=== PATIENT | female | born 1940 | race Caucasian/White ===

== ENCOUNTER 2016-06-05 09:08 | Inpatient (IN) | payer OTHER ==
[2016-06-01 14:37] LABS: HEMATOCRIT 40.3 % (36.0-48.0)
[2016-06-01 14:43] LABS: CALCIUM, SERUM 8.3 MG/DL (8.5-10.4); CHLORIDE, SERUM 100 MMOL/L (96-112); CREATININE 0.93 MG/DL (0.55-1.02); GFR AFRICAN AMERICAN 69 ML/MIN (>=60); GFR NON AFRICAN AMERICAN 59 ML/MIN (>=60); POTASSIUM, SERUM 3.8 MMOL/L (3.5-5.3); SODIUM, SERUM 139 MMOL/L (135-148)
[2016-06-01 14:45] LABS: BUN (BLOOD UREA NITROGEN) 19 MG/DL (6-23); CO2 (CARBON DIOXIDE) 29 MMOL/L (24-34); GLUCOSE, SERUM 65 MG/DL (60-99)
--- NOTE | ~2016-06-05 | OP ---
Record Of Operation [facility] [address] [place]. [address] NAME: PHIL SANTOS : 38 STATUS : ADM IN PAT#: [id number] AGE: 76 ADM/REG DATE : 06/05/16 MR#: [id number] REPORT SERV DATE: 06/05/16 DICTATED BY: KITA CRUZ DATE: 06/05/16 REPORT STATUS : Draft TRANSCRIBED BY: MODL DATE: 06/05/16 DATE OF PROCEDURE: 06/05/2016 SURGEON: Kita Cruz MD. RESIDENT: Phil Lopez MD. ANESTHESIA: General endotracheal anesthesia with local anesthetic administered by the surgeon. PREOPERATIVE DIAGNOSIS: Incarcerated incisional hernia. POSTOPERATIVE DIAGNOSIS: Incarcerated incisional hernia. PROCEDURE: Open incisional ventral hernia repair with mesh, 4.3 cm PROCEED Ventral Patch hernia system was used. IV FLUIDS: 1000 mL. ESTIMATED BLOOD LOSS: 5 mL. DRAINS: None. SPECIMEN: Hernia sac. CULTURES: None. COMPLICATIONS: None apparent. INDICATIONS: Ms. Santos is a 76-year-old female, who previously had laparoscopic hiatal hernia repair, who was evaluated by Dr. Cruz secondary to hernia at the laparoscopic incision site. It was symptomatic. CT scan was performed preoperatively. Incisional hernia repair with mesh was offered. Preoperatively, benefits, alternatives, and risks, including bleeding, infection, risk of damage to adjacent structures, including intestine and possible need for future surgeries, risk of mesh infection and recurrence, as well as risk of general endotracheal anesthesia including but not limited to, heart attack, stroke, and were all described in detail to the patient preoperatively. After having all questions answered, the patient voiced understanding of these risks and desired surgery. DESCRIPTION OF PROCEDURE: The patient was identified preoperatively as Phil Santos. It was determined that the appropriately signed documents including history and physical and operative permit was secured in the chart. She was taken to the operating room and placed supine on the operative table where general endotracheal anesthesia was induced by the Anesthesia Service who monitored the patient throughout the procedure. The abdomen was prepped and draped sterilely and an appropriate time-out procedure was completed wherein the patient, procedure, site, position, allergies, equipment, and administration of antibiotics Record Of Operation [facility] [address] [place]. [address] NAME: PHIL SANTOS : 38 STATUS : ADM IN PAT#: [id number] AGE: 76 ADM/REG DATE : 06/05/16 MR#: [id number] REPORT SERV DATE: 06/05/16 DICTATED BY: KITA CRUZ DATE: 06/05/16 REPORT STATUS : Draft TRANSCRIBED BY: STEPHANIE DATE: 06/05/16 were verified prior to beginning. Local anesthetic was instilled in the skin and subcutaneous tissues over the hernia that had been marked preoperatively. An incision was made within in the previous scar and this was dissected down through the subcutaneous tissues until the hernia was encountered. The hernia was retracted and the fascial edges were identified and cleaned of connective tissue. The hernia sac was amputated and sent to pathology as a specimen. The hernia was incarcerated. It was located in the midline in the epigastrium. Once the fascial edges had been cleaned of adhesions, a 4.3 cm PROCEED Ventral Patch Mesh was chosen and it was placed in the preperitoneal space deep to the fascia. The mesh was then secured to the fascia with Nurolon in interrupted fashion and the fascia was closed superior to the mesh in an interrupted fashion. The wound was irrigated and suctioned free of irrigant and reapproximated deeply with Vicryl and then in layers with Vicryl in a deep dermal fashion and Monocryl in a subcuticular fashion. Additional local anesthetic was then instilled. Dermabond was applied. This ended the surgical procedure. All counts of needles, sponges, and instruments were correct at the end of the case. Dr. Cruz was present and scrubbed for the entirety of the surgical procedure. Sedation was stopped. The patient was allowed to awaken and extubated in the operating room, taken to postanesthesia care unit in good condition after having tolerated the procedure well. DICTATED BY: Phil Lopez MD Galina/STEPHANIE Kita Cruz MD / [id number] CC: Kita Cruz MD
[~2016-06-05 09:08] MED LIST: ALLEGRA180 PO; BYSTOLIC10 MG PO; CELEXA20 PO; CO Q-10100 MG PO; COQ10100 MG OR; DEXILANT PO; DOMPERIDONE PO; DOMPERIDONE XX; ESTRACE1 MG PO; HCTZ25B PO; HYDROCHLOROT12.5 MG PO; KAPIDEX60 MG PO; KLOR-CON M1010 MEQ PO; L20 PO; NORV25 PO; PROTONIX PO; PROVHFA INH; PULRESP.5 INH; RANITIDINE300 MG PO; SINGULAIR5 PO; SYN125 PO; XOPEN0.5ML INH; ZOCOR20 PO
[2016-06-06] MEDS ORDERED: PCET PO (11:49)
[2016-06-06] MEDS ORDERED: ZOFRAN4 PO (11:50)
== END 2016-06-07 12:28 | disposition home or self-care (01) | DRG 355 ==
LOC: SDC/OF 09:08 → 5SO 19:50
PROVIDERS: Surgery
PROC: 0WUF0JZ Supplement Abdominal Wall with Synthetic Substitute, Open Approach (ICD-10-PCS; principal; 2016-06-05 10:45)
DX: K43.0 Incisional hernia with obstruction, without gangrene (principal); I10 Essential (primary) hypertension; R05 Cough; J45.909 Unspecified asthma, uncomplicated; Z98.890 Other specified postprocedural states
CPT/HCPCS: 80048; 85014; 85018; 87641; 88302; 94640; A9270-GY; C1781; J0690; J2250; J2405; J2710; J3010